=== PATIENT | female | born 1940 | race Caucasian/White ===

== ENCOUNTER 2018-01-14 18:56 | Inpatient (IN) | payer MEDICARE, OTHER ==
[~2018-01-14] VITALS: Ht 165.1 cm; Wt 43.1 kg
[2018-01-14] MEDS ORDERED: SORINE 80 MG TA80 MG PO (19:01)
[2018-01-14] MEDS ORDERED: COUMADIN 5 MG TA5 M1 PO (19:01)
[2018-01-14] MEDS ORDERED: CARDIZEM CD 18180 M3 PO (19:01)
[2018-01-14 19:19] LABS: HEMATOCRIT 40.6 % (37.0-47.0); HEMOGLOBIN 12.7 gm/dL (12.0-15.0); MCH 29.7 pg (26.0-34.0); MCHC 31.2 g/dL (28.0-37.0); MCV 95.5 fL (80.0-100.0); MPV 9.4 fl. (7.2-11.1); NUCLEATED RBCS 0 /100WBC; PLATELET COUNT* 213 thou/uL (150-400); RBC 4.26 mil/uL (4.20-5.00); RDW-CV 16.8 % (10.5-14.5)
[2018-01-14 19:24] LABS: CALCIUM 8.8 mg/dL (8.5-10.1); CREATININE 1.6 mg/dL (0.6-1.3); POTASSIUM 4.7 mmol/L (3.5-5.1)
[2018-01-14 19:26] LABS: INR 1.5; PROTIME 14.6 Seconds (9.20-11.50)
[2018-01-14 19:35] LABS: ALBUMIN 2.7 g/dL (3.4-5.0); TOTAL BILIRUBIN 2.3 mg/dL (<0.1-1.0); TOTAL PROTEIN 6.2 g/dL (6.4-8.2); TROPONIN-I LEVEL 0.1 ng/mL (<0.06)
[2018-01-14 19:47] LABS: ABSOLUTE LYMPHOCYTES 0.3 thou/uL (0.8-5.3); ABSOLUTE MONOCYTES 1.1 thou/uL (0.0-1.2); ABSOLUTE NEUTROPHILS 14.6 thou/uL (1.6-8.1)
[2018-01-14 19:49] LABS: ANISOCYTOSIS 1+; HYPOCHROMASIA Occasional; PLATELET ESTIMATE ADEQUATE
[2018-01-14 22:13] LABS: URINE BILIRUBIN NEGATIVE (Negative); URINE BLOOD NEGATIVE (Negative); URINE CLARITY CLEAR; URINE COLOR YELLOW; URINE GLUCOSE-RANDOM NEGATIVE (Negative); URINE KETONES NEGATIVE (Negative); URINE LEUKOCYTES-REFLEX NEGATIVE (Negative); URINE NITRITE-REFLEX NEGATIVE (Negative); URINE PROTEIN 2+ (Negative); URINE SPECIFIC GRAVITY >= 1.030 (1.005-1.030); URINE UROBILINOGEN 0.2 E.U./dl (0.2-1.0)
[2018-01-14 22:20] VITALS: BP 117/87; BP 98/73
[2018-01-14 22:20] LABS: BACTERIA-REFLEX 1-9 Few /HPF (None Seen); SQUAMOUS >10 Many /LPF (0-3); URINE RBC 0-2 Rare /HPF (0-2); URINE WBC-REFLEX None Seen /HPF (0-5)
[2018-01-14 22:21] LABS: AMORPHOUS URATES Many /LPF (None Seen); HYALINE CASTS 0-3 Few /LPF (None Seen)
[2018-01-14 23:00] VITALS: BP 113/90
[2018-01-15] VITALS (21 sets, daily range): BP systolic 61–111; BP diastolic 43–90
[2018-01-15 05:53] LABS: HEMATOCRIT 43.2 % (37.0-47.0); HEMOGLOBIN 13.2 gm/dL (12.0-15.0); MCH 29.9 pg (26.0-34.0); MCHC 30.7 g/dL (28.0-37.0); MCV 97.4 fL (80.0-100.0); MPV 9.3 fl. (7.2-11.1); RBC 4.43 mil/uL (4.20-5.00); RDW-CV 16.9 % (10.5-14.5); WBC 14.8 thou/uL (4.0-11.0)
[2018-01-15 06:07] LABS: INR 1.7; PROTIME 16.5 Seconds (9.20-11.50)
[2018-01-15 06:14] LABS: CALCIUM 8.7 mg/dL (8.5-10.1); CREATININE 1.3 mg/dL (0.6-1.3); MAGNESIUM 2.2 mg/dL (1.8-2.4); POTASSIUM 4.7 mmol/L (3.5-5.1); TROPONIN-I LEVEL 0.15 ng/mL (<0.06)
--- NOTE | 2018-01-15 10:36 | EKG ---
[place] [address] ELECTROCARDIOGRAM REPORT Name: LESYUNG MOUSTAPHA Room: [address] ADM IN [facility]#: [id number] Admission: 01/14/18 Attend Phys: Tesfaye Machado, Discharge: Date of : 44 Report #: [id number] THIS REPORT FOR: //name// [facility] ED Test Date: 2018-01-14 Test Time: 19:07:28 Pat Name: YUNG SALDANA Department: Room: [facility] Gender: F Special Education Educational Assistant: : 1940 Requested By: Lisa Ramesh Order Number: [id number] MD: Angel Bhardwaj Measurements Intervals [place] Rate: 164 P: OK: QRS: 5 QRSD: 76 T: 139 QT: 275 QTc: 455 Interpretive Statements Atrial fibrillation with rapid V-rate Probable anterolateral infarct, age indeterm No previous ECG available for comparison Electronically Signed On 01-15-2018 10:36:18 CDT by Angel Bhardwaj [email or web address] <ELECTRONICALLY SIGNED> By: Frandy Bhardwaj MD, [facility] 01/15/18 1036 190 06 Frandy Bhardwaj MD, [facility] /EPI
[2018-01-15 11:50] LABS: PHOSPHORUS* 4.2 mg/dL (2.5-4.9)
[2018-01-15 13:06] LABS: HEMATOCRIT 36.1 % (37.0-47.0); HEMOGLOBIN 11.5 gm/dL (12.0-15.0); MCH 30.4 pg (26.0-34.0); MCHC 31.9 g/dL (28.0-37.0); MCV 95.4 fL (80.0-100.0); MPV 9.4 fl. (7.2-11.1); NUCLEATED RBCS 0 /100WBC; PLATELET COUNT* 146 thou/uL (150-400); RBC 3.79 mil/uL (4.20-5.00); RDW-CV 16.2 % (10.5-14.5); WBC 9.5 thou/uL (4.0-11.0)
[2018-01-15 13:32] LABS: ABSOLUTE LYMPHOCYTES 0.6 thou/uL (0.8-5.3); ABSOLUTE MONOCYTES 0.2 thou/uL (0.0-1.2); ABSOLUTE NEUTROPHILS 8.7 thou/uL (1.6-8.1)
[2018-01-15 13:33] LABS: PLATELET ESTIMATE ADEQUATE
[2018-01-16] VITALS (16 sets, daily range): BP systolic 97–125; BP diastolic 64–93
[2018-01-16 03:58] LABS: HEMATOCRIT 34.6 % (37.0-47.0); MCH 30.3 pg (26.0-34.0); MCHC 31.7 g/dL (28.0-37.0); MCV 95.4 fL (80.0-100.0); RBC 3.63 mil/uL (4.20-5.00); RDW-CV 16.5 % (10.5-14.5); WBC 11.3 thou/uL (4.0-11.0)
[2018-01-16 04:17] LABS: ALBUMIN 1.6 g/dL (3.4-5.0); CALCIUM 7.1 mg/dL (8.5-10.1); CREATININE 1.3 mg/dL (0.6-1.3); MAGNESIUM 1.8 mg/dL (1.8-2.4); TOTAL BILIRUBIN 2.1 mg/dL (<0.1-1.0); TOTAL PROTEIN 4.2 g/dL (6.4-8.2); TROPONIN-I LEVEL 0.19 ng/mL (<0.06)
[2018-01-16 04:26] LABS: POTASSIUM 3.4 mmol/L (3.5-5.1)
[2018-01-16 11:02] LABS: ABSOLUTE LYMPHOCYTES 0.6 thou/uL (0.8-5.3); ABSOLUTE MONOCYTES 0.7 thou/uL (0.0-1.2); ABSOLUTE NEUTROPHILS 10.6 thou/uL (1.6-8.1); BASOPHILS 0.4 %; HEMATOCRIT 37.5 % (37.0-47.0); LYMPHOCYTES 4.7 %; MCH 29.9 pg (26.0-34.0); MCV 93.6 fL (80.0-100.0); MONOCYTES 5.7 %; MPV 8.7 fl. (7.2-11.1); NUCLEATED RBCS 0 /100WBC; PLATELET COUNT* 176 thou/uL (150-400); POLYS 89.2 %; RBC 4.01 mil/uL (4.20-5.00); RDW-CV 16.1 % (10.5-14.5); WBC 11.9 thou/uL (4.0-11.0)
[2018-01-16 11:07] LABS: INR 1.5; PROTIME 14.6 Seconds (9.20-11.50)
[2018-01-16 11:48] LABS: APTT 41.3 Seconds (25.0-31.3)
--- NOTE | 2018-01-16 14:19 | 2DMMODE ---
[place] [address] 2 D/M-MODE ECHOCARDIOGRAM Name: YUNG SALDANA Room: [facility] IN [facility]#: [id number] Admission: 01/14/18 Attend Phys: Tesfaye Black Discharge: Date of : 44 Date of Service: 01/16/18 1419 Report #: [id number] THIS REPORT FOR: //name// APPROVED REPORT Study performed: 01/16/2018 10:01:33 EXAM: Comprehensive 2D, Doppler, and color-flow Echocardiogram Patient Location: In-Patient Room #: 003 Status: routine BSA: 1.58 HR: 104 bpm BP: 104/78 mmHg Rhythm: Atrial Fibrillation Other Information Study Quality: Good Indications Atrial Fibrillation 2D Dimensions LVEF(%): 25.05 (>50%) IVSd: 10.89 (7-11mm) LVOT Diam: 19.23 (18-24mm) LVDd: 44.97 mm PWd: 7.94 (7-11mm) Ascending Ao: 32.62 (22-36mm) LVDs: 39.80 (25-40mm) Aortic Root: 34.12 mm Schilling's LVEF: 25.05 % Volumes Left Atrial Volume (Systole) LA ESV Index: 90.10 mL/m2 Aortic Valve AoV Peak Ric.: 1.91 m/s AO Peak Gr.: 14.67 mmHg LVOT Max P.23 mmHg AO Mean Gr.: 8.30 mmHg LVOT Mean P.68 mmHg LVOT Max V: 0.55 m/s AO V2 VTI: 26.73 cm LVOT Mean V: 0.39 m/s CANDY (VTI): 0.88 cm2 LVOT V1 VTI: 8.10 cm AI [place]: 1.68 m/s2 AI PHT: 751.28 [place] [address] 2 D/M-MODE ECHOCARDIOGRAM Name: YUNG SALDANA LISSADanielle Room: [address] IN .R.#: [id number] Admission: 01/14/18 Attend Phys: Tesfaye Black Discharge: Date of : 44 Date of Service: 01/16/18 1419 Report #: [id number] Mitral Valve MV Decel. Time: 122.23 ms MV PHT: 35.45 ms MVA (PHT): 6.21 cm2 TDI Medial E' Ric.: 0.07 m/s Lateral E' Ric.: 0.08 m/s Tricuspid Valve RAP Estimate: 5.00 mmHg TR Peak Gr.: 27.85 mmHg RVSP: 32.85 mmHg PA Pressure: 32.85 mmHg Left Ventricle Left ventricle is mildly dilated. There is severe diffuse hypokinesis of left ventricular wall motion There is normal left ventricular wall thickness. Left ventricular systolic function is severely decreased. LVEF is 20-25%. This study is not technically sufficient to allow evaluation of the LV diastolic function due to atrial fibrillation. Right Ventricle Right ventricle is mildly dilated. The right ventricular systolic function is normal. Atria Left atrium is severely dilated. Right atrium is severely dilated. Aortic Valve Moderate aortic valve sclerosis. Mild to moderate aortic regurgitation. Mild aortic stenosis. Mitral Valve There is mitral annular calcification. Moderate mitral regurgitation. No evidence of mitral valve stenosis. Tricuspid Valve The tricuspid valve is normal in structure. Moderate to severe tricuspid regurgitation. Mild pulmonary hypertension. Pulmonic Valve The pulmonary valve is normal in structure. Mild [place] [address] 2 D/M-MODE ECHOCARDIOGRAM Name: YUNG SALDANA Room: [address]#: [id number] Admission: 01/14/18 Attend Phys: Tesfaye Black Discharge: Date of : 44 Date of Service: 01/16/18 1419 Report #: [id number] Great Vessels The aortic root is normal in size. IVC is dilated and collapses <50% with inspiration. Pericardium There is no pericardial effusion. Large left pleural effusion. <Conclusion> Left ventricle is mildly dilated. There is normal left ventricular wall thickness. Left ventricular systolic function is severely decreased. LVEF is 20-25%. Right ventricle is mildly dilated. Left atrium is severely dilated. Right atrium is severely dilated. Moderate aortic valve sclerosis. Mild to moderate aortic regurgitation. Mild aortic stenosis. There is mitral annular calcification. Moderate mitral regurgitation. No evidence of mitral valve stenosis. The tricuspid valve is normal in structure. Moderate to severe tricuspid regurgitation. Mild pulmonary hypertension. IVC is dilated and collapses <50% with inspiration. There is no pericardial effusion. There is severe diffuse hypokinesis of left ventricular wall motion <ELECTRONICALLY SIGNED> By: Otoniel Rivera MD, FACC 01/16/18 1419 1419 1419 Otoniel Rivera MD, FACC /INF
[2018-01-17] VITALS (12 sets, daily range): BP systolic 96–146; BP diastolic 60–88
[2018-01-17 06:25] LABS: ABSOLUTE LYMPHOCYTES 0.3 thou/uL (0.8-5.3); ABSOLUTE MONOCYTES 0.8 thou/uL (0.0-1.2); BASOPHILS 0.1 %; HEMATOCRIT 37.2 % (37.0-47.0); HEMOGLOBIN 11.9 gm/dL (12.0-15.0); MCH 30.1 pg (26.0-34.0); MCV 94.2 fL (80.0-100.0); MONOCYTES 6.8 %; MPV 8.2 fl. (7.2-11.1); NUCLEATED RBCS 0 /100WBC; PLATELET COUNT* 160 thou/uL (150-400); POLYS 90.1 %; RBC 3.95 mil/uL (4.20-5.00); RDW-CV 16.4 % (10.5-14.5); WBC 11.2 thou/uL (4.0-11.0)
[2018-01-17 06:44] LABS: ALBUMIN 1.7 g/dL (3.4-5.0); CALCIUM 7.3 mg/dL (8.5-10.1); CREATININE 0.9 mg/dL (0.6-1.3); POTASSIUM 4.2 mmol/L (3.5-5.1); TOTAL BILIRUBIN 1.8 mg/dL (<0.1-1.0); TOTAL PROTEIN 4.4 g/dL (6.4-8.2)
[2018-01-17 17:03] LABS: BF RBC 2581 /mm3; TOTAL CELL COUNT 244 /mm3
[2018-01-17 17:33] LABS: BF LYMPHOCYTES 24 %; BF MONOCYTES 24 %; BF POLYS 52 %; BF TISSUE 15 /100 WBC
[2018-01-17 18:15] LABS: SOURCE THORACENTESIS
[2018-01-17 18:16] LABS: COLOR AMBER; TOTAL VOLUME 500 ml
[2018-01-17 18:17] LABS: CLARITY CLEAR
--- NOTE | 2018-01-17 21:59 | CON ---
[address] [address] CONSULTATION Name: YUNG RAY Room: [address] IN .R.#: [id number] Admission: 01/14/18 Attend Phys: Tesfaye Machado, Discharge: Date of : 44 Report #: [id number] THIS REPORT FOR: //name// CC: Dinh Machado DATE OF SERVICE: 01/15/2018 CONSULTATION: Infectious diseases. HISTORY OF PRESENT ILLNESS: Ms Ray is a 77-year-old white female who was admitted to the hospital yesterday because of weakness and increased confusion. Workup showed that the patient had atrial fibrillation with a pulse of 178 beats per minute. The family gives a history that she was discharged from [facility] about 2 weeks ago where she had atrial flutter, which was controlled with Cardizem and sotalol. However, the patient was not taking her medications at home. Initially, gave a history that she had not really eaten or drunk for 2-3 days either. The patient was noted to have low blood pressure and a very high white count. She was initially treated with vancomycin plus Zosyn and then meropenem. Infectious disease consultation was requested to assist with further antibiotic management. I have very limited past history. Apparently, the patient does have a history of dementia and atrial fibrillation. Her previous charts are at other facilities and the patient is unable to give any additional past medical history. FAMILY HISTORY: Unavailable. SOCIAL HISTORY: The chart notes the patient is . I have no history of tobacco, alcohol nor drugs. I understand from the nurses that the granddaughter has been in and stated the patient is to be a full code. REVIEW OF SYSTEMS: Unavailable as the patient is really not communicating. PHYSICAL EXAMINATION: GENERAL: The patient appears older than her stated age, debilitated, ill acute and chronically. She is moaning and a bit agitated, but cannot express what the problems are. VITAL SIGNS: Show the patient has been afebrile since presenting to the Emergency Room. Blood pressures has ranged from 87/62-117/87. The pulse was initially 178 and now is down to 98. SKIN: Shows ecchymoses on the left eye and cheek consistent with recent trauma. The skin is somewhat sallow and pale. The lower extremities shows significant venous stasis changes with dyshidrosis, chronic hyper[place] [address] CONSULTATION Name: YUNG RAY Room: [address] IN [facility]#: [id number] Admission: 01/14/18 Attend Phys: Tesfaye Machado, Discharge: Date of : 44 Report #: [id number] of shallow crusted dried ulcers. Pulses are diminished. Capillary refill is good. Nails are in good repair. There does not appear to be an acute cellulitic component, however. ENT: Shows the facial trauma. The patient is edentulous and there may be a bit of thrush in her mouth. The patient does not really cooperate with exam, so it is difficult to say. NECK: Not stiff. No adenopathy. HEART: Heart sounds S1, S2, rapid rate. LUNGS: Clear to anterior auscultation. ABDOMEN: Belly is thin, soft, not tender. GENITALIA: Grossly normal. EXTREMITIES: Normal except for the stasis changes as noted. LABORATORY DATA: White count was 16 in the ER, now is down to 9.5, 24 hours later. The hemoglobin is 11.5, hematocrit 36%, platelet 146,000. Electrolytes: Sodium 142, potassium 4.7, chloride 108, bicarbonate 20, BUN was 54, creatinine has gone from 1.6 to 1.3 with hydration, glucose 120. Protime 16.5, INR 1.5, PTT 37. D-dimer is 33.7. Liver function tests elevated with SGOT 73, SGPT 66, alkaline phosphatase 211 and bilirubin 2.3. Blood cultures x 2 are negative at 24 hours. Urinalysis shows no white cells. Urine culture is pending. Chest x-ray shows cardiomegaly. CT of the head, chest, abdomen and pelvis demonstrate atrophic changes in the brain, but no acute disease, cardiomegaly, significant compression fracture T9, possibly not acute as well as a compression fracture at L3. No other significant disease was noted. A perfusion scan was low probability for pulmonary embolus. In summary, the patient, who was noncompliant with her sotalol, Cardizem, returns to the hospital with atrial fibrillation with rapid ventricular response. This is further complicated by dehydration and exacerbation of her dementia. At this time, I find little evidence to suggest a secondary infection. The patient does not have evidence of pneumonia, no urinary tract infection. Her legs are abnormal, but I think this is mostly venous stasis without acute infection. At this time, I would like to discontinue the antibiotic therapy. We can obtain blood cultures if there is fever. I would like to treat the stasis ulcers on the leg with Silvadene and gauze and treat the underlying problem with elevation and mild compression. I will ask the wound care nurse to visit on Tuesday to measure and photograph the wounds. I would like to look for metabolic impediments of wound healing such as low zinc, low thyroid, heart failure. In addition, the patient was at [facility] 2 weeks ago and I will try to obtain those records. We will want to do followup CBC and CMP as well as await [place] [address] CONSULTATION Name: YUNG RAY Room: [address] IN M.R.#: [id number] Admission: 01/14/18 Attend Phys: Tesfaye Machado, Discharge: Date of : 44 Report #: [id number] I appreciate the opportunity of input in the care of this patient. Dr. Boland will assume infectious disease care starting on Tuesday morning. Thank you for this consultation. <ELECTRONICALLY SIGNED> By: Otoniel Chavez MD 01/17/18 2159 1830 [id number] Chavez MD /lizzie
[2018-01-18] VITALS (9 sets, daily range): BP systolic 118–142; BP diastolic 76–114
[2018-01-18 02:08] LABS: HEPATITIS B SURFACE AG Negative (Negative)
[2018-01-18 04:51] LABS: HEMATOCRIT 36.6 % (37.0-47.0); HEMOGLOBIN 11.8 gm/dL (12.0-15.0); MCHC 32.1 g/dL (28.0-37.0); MCV 93.5 fL (80.0-100.0); MPV 8.2 fl. (7.2-11.1); NUCLEATED RBCS 0 /100WBC; PLATELET COUNT* 164 thou/uL (150-400); RBC 3.92 mil/uL (4.20-5.00); RDW-CV 16.2 % (10.5-14.5); WBC 11.8 thou/uL (4.0-11.0)
[2018-01-18 05:14] LABS: ALBUMIN 1.9 g/dL (3.4-5.0); CALCIUM 7.9 mg/dL (8.5-10.1); CREATININE 0.9 mg/dL (0.6-1.3); POTASSIUM 3.8 mmol/L (3.5-5.1); TOTAL BILIRUBIN 2.1 mg/dL (<0.1-1.0)
[2018-01-18 05:25] LABS: PREALBUMIN 11.7 mg/dL (18.0-35.7)
[2018-01-18 06:06] LABS: ABSOLUTE LYMPHOCYTES 0.4 thou/uL (0.8-5.3); ABSOLUTE MONOCYTES 0.4 thou/uL (0.0-1.2); ABSOLUTE NEUTROPHILS 11.1 thou/uL (1.6-8.1); ANISOCYTOSIS 1+; PLATELET ESTIMATE ADEQUATE; POIKILOCYTOSIS 1+
[2018-01-18 21:11] LABS: BODY FLUID AMYLASE 8 U/L (()); BODY FLUID LDH 114 IU/L (()); BODY FLUID PROTEIN 0.9 g/dL (())
[2018-01-19] VITALS (9 sets, daily range): BP systolic 121–145; BP diastolic 72–88
[2018-01-19 04:33] LABS: ABSOLUTE LYMPHOCYTES 0.5 thou/uL (0.8-5.3); BASOPHILS 0.3 %; EOSINOPHILS 0.1 %; HEMATOCRIT 34.4 % (37.0-47.0); LYMPHOCYTES 3.9 %; MCH 29.9 pg (26.0-34.0); MCHC 31.9 g/dL (28.0-37.0); MCV 93.6 fL (80.0-100.0); MONOCYTES 8.5 %; MPV 8.4 fl. (7.2-11.1); NUCLEATED RBCS 0 /100WBC; PLATELET COUNT* 142 thou/uL (150-400); POLYS 87.2 %; RBC 3.68 mil/uL (4.20-5.00); RDW-CV 16.8 % (10.5-14.5); WBC 11.5 thou/uL (4.0-11.0)
[2018-01-19 04:57] LABS: CALCIUM 7.9 mg/dL (8.5-10.1); CREATININE 0.8 mg/dL (0.6-1.3); POTASSIUM 3.4 mmol/L (3.5-5.1); TOTAL BILIRUBIN 2.1 mg/dL (<0.1-1.0)
[2018-01-19 13:09] LABS: ANA INTERPRETATION Negative (Negative)
[2018-01-19 13:13] LABS: SOURCE THORACENTESIS
[2018-01-19 13:14] LABS: SOURCE THORACENTESIS
[2018-01-20] VITALS: BP 145/86
[2018-01-20 04:00] VITALS: BP 138/82
[2018-01-20 05:31] LABS: ABSOLUTE LYMPHOCYTES 0.4 thou/uL (0.8-5.3); ABSOLUTE NEUTROPHILS 13.2 thou/uL (1.6-8.1); BASOPHILS 0.3 %; HEMATOCRIT 37.7 % (37.0-47.0); LYMPHOCYTES 2.5 %; MCH 29.8 pg (26.0-34.0); MCHC 31.8 g/dL (28.0-37.0); MCV 93.7 fL (80.0-100.0); MONOCYTES 7.1 %; MPV 8.5 fl. (7.2-11.1); NUCLEATED RBCS 0 /100WBC; PLATELET COUNT* 148 thou/uL (150-400); POLYS 90.1 %; RBC 4.02 mil/uL (4.20-5.00); RDW-CV 16.4 % (10.5-14.5); WBC 14.7 thou/uL (4.0-11.0)
[2018-01-20 05:52] LABS: ALBUMIN 2.2 g/dL (3.4-5.0); CALCIUM 7.2 mg/dL (8.5-10.1); CREATININE 0.7 mg/dL (0.6-1.3); TOTAL BILIRUBIN 2.6 mg/dL (<0.1-1.0); TOTAL PROTEIN 5.7 g/dL (6.4-8.2)
[2018-01-20 06:00] LABS: POTASSIUM 2.6 mmol/L (3.5-5.1)
[2018-01-20 12:19] VITALS: BP 132/79
[2018-01-20 13:45] VITALS: BP 132/79
[2018-01-20 16:42] VITALS: BP 120/59
[2018-01-20 18:44] LABS: INR 1.3; PROTIME 12.2 Seconds (9.20-11.50)
[2018-01-20 20:00] VITALS: BP 120/65
--- NOTE | 2018-02-13 21:05 | CON ---
[address] [address] CONSULTATION Name: YUNG SALDANA Room: [address]#: [id number] Admission: 01/14/18 Attend Phys: Tesfaye Machado, Discharge: 01/20/18 Date of : 44 Report #: [id number] THIS REPORT FOR: //name// CC: Dinh Machado DATE OF SERVICE: 01/15/2018 Renal consultation requested for acute kidney injury. HISTORY OF PRESENT ILLNESS: The patient is a 77-year-old female patient without history of kidney disease. She was admitted to [facility] with altered mental status and atrial fibrillation with rapid ventricular rate. During the course of her evaluation, she was found to have altered mental status and signs of sepsis and shock. She has been admitted to the Intensive Care Unit. Renal consultation was requested to assist with acute kidney injury. The patient has baseline dementia and is unable to provide any history. The chart was reviewed in detail, and the case was reviewed with the ICU nursing. PAST MEDICAL HISTORY: 1. Renal. No history of kidney disease. 2. Dementia. 3. Atrial fibrillation. 4. Chronic anticoagulation. ALLERGIES: No known drug allergies. SOCIAL HISTORY: No history of tobacco or alcohol use. FAMILY HISTORY: Negative for kidney disease. CURRENT MEDICATIONS: Amiodarone, insulin, IV fluids and antibiotics including Zosyn and vancomycin. PHYSICAL EXAMINATION: VITAL SIGNS: Temperature is 36.1, pulse 136, blood pressure 94/44. GENERAL: She is unresponsive. HEENT: Mouth and throat was dry. NECK: No jugular venous distention. CHEST: Clear. HEART: Tachycardic. ABDOMEN: Soft. EXTREMITIES: There is no lower extremity edema. LABORATORY DATA: Hemoglobin 11.5, white count 9500, platelet count of 146,000. [place] [address] CONSULTATION Name: YUNG SALDANA Room: [address]#: [id number] Admission: 01/14/18 Attend Phys: Tesfaye Machado, Discharge: 01/20/18 Date of : 44 Report #: [id number] Creatinine was initially 1.6, now down to 1.3, sodium 142, potassium 4.7, chloride 108, CO2 of 20, calcium 8.7. Troponin 0.15. Chest x-ray notable for a subclavian central venous catheter. No infiltrates. CT scan of the abdomen and pelvis was requested. She has an L3 compression fracture. There was no mention of any renal abnormalities. IMPRESSION: 1. Acute kidney injury as her creatinine was initially 2.3, now down to 1.3, due to combination of volume depletion, sepsis and shock. 2. Sepsis and shock. 3. Altered mental status/encephalopathy and dementia. 4. Atrial fibrillation. 5. Chronic anticoagulation. 6. Dementia. RECOMMENDATIONS: 1. Agree with medical management as directed by Dr. Machado. 2. We will adjust IV fluids. 3. Hamilton catheter is in place. 4. Check urine studies. 5. Follow laboratory data carefully. Further recommendations will depend on clinical course. Thank you very much for asking me to see this patient and allowing me to assist in her care. <ELECTRONICALLY SIGNED> By: Romario Santo MD 02/13/18 2105 1313 0012Rmarce Brock MD /nt
--- NOTE | 2018-02-19 11:20 | CON ---
[address] [address] CONSULTATION Name: YUNG SALDANA Room: [address] IN M.R.#: [id number] Admission: 01/14/18 Attend Phys: Tesfaye Machado, Discharge: 01/20/18 Date of : 44 Report #: [id number] THIS REPORT FOR: //name// CC: Dinh Machado TYPE OF REPORT: Cardiology consultation. HISTORY OF PRESENT ILLNESS: I was asked by Dr. Machado to see this 77-year-old white female in cardiology consultation for evaluation and treatment of atrial fibrillation with a rapid ventricular response. This lady has a known history of apparently paroxysmal atrial fibrillation. She has been followed by Dr. Holloway. When he saw her in his office last in September of this year, she was apparently in sinus rhythm on her EKG. She apparently has had paroxysmal atrial fibrillation. She is chronically anticoagulated. She had some falls at that time. She apparently had a fall that took to the ER at [place] not long ago. She was admitted at this time with what was felt to be a urinary tract infection with urosepsis. She has been not eating or drinking well for several days and had been confused as well. PAST MEDICAL HISTORY: Additionally shows a history of essential hypertension and a heart murmur. On this admission. She is felt to have been dehydrated as well. Currently, she appears to be in atrial flutter with variable block with a rapid ventricular response. Her home medicines have been diltiazem CD 180 mg daily, sotalol 80 mg b.i.d. and warfarin 5 mg daily. Note, she cannot give a history at this time and she is poorly responsive. ALLERGIES: She has no known allergies. REVIEW OF SYSTEMS: Unobtainable. SOCIAL HISTORY: She apparently does not smoke, drink or use illegal drugs, although this could not be obtained from her directly. It was obtained from her office chart. FAMILY HISTORY: Apparently negative. Again, it could not be obtained from her. PHYSICAL EXAMINATION: GENERAL: She presents as an elderly, well-developed but chronically ill-appearing white female, in no acute distress. She is poorly responsive and a bit confused. VITAL SIGNS: Her pulse was 136 and it is slightly irregular, blood pressure is 103/89, respirations 16 and regular and temperature is 97.7. HEENT: Her head was atraumatic. Eyes clear. NECK: Supple. There is no jugular venous distention or hepatojugular reflux. Thyroid is not enlarged. [place] [address] CONSULTATION Name: YUNG SALDANA LISSADanielle Room: [address] IN M.R.#: [id number] Admission: 01/14/18 Attend Phys: Tesfaye Machado, Discharge: 01/20/18 Date of : 44 Report #: [id number] SKIN: Warm and dry. Mucous membranes are moist. LUNGS: Reveal decreased breath sounds throughout. HEART: Revealed normal first and second heart sound. There are no murmurs, rubs, thrills, heaves or gallops. PMI is not displaced. The rhythm was slightly irregular but it was rapid with heart rate of around 120 when I examined her. PMI was not displaced. ABDOMEN: Soft, flat and nontender. No palpable masses. No organomegaly. EXTREMITIES: Reveal no cyanosis, clubbing or edema. NEUROLOGICAL: The patient has sores all over her legs. She did not mentate normally or talk normally. She did move all her extremities to pain, however. RADIOLOGICAL DATA: EKG when she came in the ER appears to be atrial fibrillation with a rapid rate. There is late transition of the precordial R-wave. There are tiny Q-waves in lead III but none in II or aVF. An old anterolateral infarct cannot be excluded. CT of the chest showed severe cardiomegaly, there are small bilateral pleural effusions and mitral annular calcification. Chest x-ray was essentially as described above. IMPRESSION: 1. Urinary tract infection with probable sepsis. 2. Atrial flutter/fibrillation with rapid ventricular response. 3. Dehydration. 4. Essential hypertension. 5. Long-term Coumadin use. 6. Mental status changes. Note that the family states that this lady has not been taking her medicine regularly at home. RECOMMENDATIONS: She is already on amiodarone. I would give her a half bolus additional of the amiodarone to try to slow her rate. Additionally, I would give her a moderate dose of digitalis to try to slow her heart rate again. She should be started on heparin since she cannot take p.o. pills. I would check an echo. Thank you very much for asking me to see the patient. If there are any questions, please feel free to contact me. <ELECTRONICALLY SIGNED> By: Frandy Bhardwaj MD, FACC 02/19/18 1120 0907 [id number]. Angel Bhardwaj MD, FACC /nt
--- NOTE | 2018-04-14 07:06 | PATH ---
[address] [address] PATHOLOGY RPT PROCEDURE Name: YUNG SALDANA Room: [address] IN [facility]#: [id number] Admission: 01/14/18 Date of : 44 Discharge: 01/20/18 Report #: [id number] Path Case #: [id number] Note [facility] Accession Number: [id number] TESTS RESULT FLAG UNITS REF RANGE LAB Clinician Provided Cytology Information No. of containers..01 Other (Miscellaneous) Source: LEFT PLEURAL FLUID DIAGNOSIS: 02 LEFT PLEURAL FLUID NEGATIVE FOR MALIGNANT CELLS. Reactive mesothelial cells and inflammation, predominantly chronic. THIS INTERPRETATION INCLUDES EVALUATION OF A CELL BLOCK. Signed out by: 02 Barron Shafer MD, Pathologist NPI- [id number] Performed by: 01 Analy Le, [employer] ([facility]) Gross description: 01 55ML, YELLOW, CLOUDY /LCS FLAG LEGEND: L-Low Normal,H-High Normal,LL-Alert Low,HH-Alert High <-Panic Low,>-Panic High,A-Abnormal,AA-Critical Abnormal Performed at: [address] [place] [address] Michael Quinn MD, [address], [place] [address] Barron Shafer MD, Specimen Comment: A duplicate report has been generated due to demographic updates. Performed at: [address], [place], [place] [id number] MD Michael Quinn MD Phone: [phone]
== END 2018-01-20 20:18 | DRG 871 ==
LOC: M.ERS 18:56 → M.TBA-ER 20:15 → M.ICU 20:15 → M.2W 01-19 05:31
PROVIDERS: Emergency Medicine; Internal Medicine; Internal Medicine Gastroenterology; ADMIT Family Medicine
PROC: 02HV33Z Insertion of Infusion Device into Superior Vena Cava, Percutaneous Approach (ICD-10-PCS; principal; 2018-01-15)
PROC: 0W9B3ZZ Drainage of Left Pleural Cavity, Percutaneous Approach (ICD-10-PCS; 2018-01-17)
DX: A41.9 Sepsis, unspecified organism (principal); N17.0 Acute kidney failure with tubular necrosis; G93.40 Encephalopathy, unspecified; I50.23 Acute on chronic systolic (congestive) heart failure; I21.4 Non-ST elevation (NSTEMI) myocardial infarction; N39.0 Urinary tract infection, site not specified; I48.92 Unspecified atrial flutter; I13.0 Hypertensive heart and chronic kidney disease with heart failure and stage 1 through stage 4 chronic kidney disease, or unspecified chronic kidney disease; I42.9 Cardiomyopathy, unspecified; J90 Pleural effusion, not elsewhere classified; I47.2 Ventricular tachycardia; Z68.1 Body mass index [BMI] 19.9 or less, adult; E87.2 Acidosis; E44.0 Moderate protein-calorie malnutrition; R57.9 Shock, unspecified; K75.9 Inflammatory liver disease, unspecified; R26.9 Unspecified abnormalities of gait and mobility; R65.20 Severe sepsis without septic shock; E86.0 Dehydration; F03.90 Unspecified dementia, unspecified severity, without behavioral disturbance, psychotic disturbance, mood disturbance, and anxiety; I48.0 Paroxysmal atrial fibrillation; I87.2 Venous insufficiency (chronic) (peripheral); I67.9 Cerebrovascular disease, unspecified; N18.9 Chronic kidney disease, unspecified; I70.90 Unspecified atherosclerosis; I73.9 Peripheral vascular disease, unspecified; R73.9 Hyperglycemia, unspecified; E87.6 Hypokalemia; Z66 Do not resuscitate; Z79.899 Other long term (current) drug therapy; Z79.01 Long term (current) use of anticoagulants; Z91.14 Patient's other noncompliance with medication regimen; Z82.49 Family history of ischemic heart disease and other diseases of the circulatory system; Z91.81 History of falling